=== PATIENT | female | born 1980 | race Two or more races ===

== ENCOUNTER 2020-10-18 05:16 | Inpatient (IN) | payer OTHER ==
[~2020-10-18] VITALS: Ht 152.4 cm; Wt 63.0 kg
[2020-10-18] VITALS (14 sets, daily range): BP systolic 95–157; BP diastolic 44–78
[~2020-10-18 05:16] MED LIST: TYLENOL EXTRA500 MG ORAL
[2020-10-18] MEDS ORDERED: Gelfoam Size TOPIC ONE (06:29)
[2020-10-18] MEDS ORDERED: Thrombin 5000 units TOPIC ONE (06:29)
[2020-10-18] MEDS ORDERED: Bacitracin 50000 Units Vial ONE (06:29)
[2020-10-18] MEDS ORDERED: Succinylcholine 20mg/ml 10ml vial ONE (06:30)
[2020-10-18] MEDS ORDERED: Rocuronium Bromide 50mg/5ml Inj IV ONE (06:30)
[2020-10-18] MEDS ORDERED: Phenylephrine 10mg/ml Vial ONE (06:42)
[2020-10-18] MEDS ORDERED: Lidocaine 1% MPF 10mg/ml 5ml ONE (06:42)
[2020-10-18] MEDS ORDERED: Midazolam 2mg/2ml Inj ONE (06:43)
[2020-10-18] MEDS ORDERED: fentaNYL 100 mcg/2 mL IV ONE (06:43)
--- NOTE | 2020-10-18 06:59 | Anethesia Preoperative Eval ---
Anesthesia Pre-op PMH/ROS General Date of Evaluation: Oct 18, 2020 Time of Evaluation: 06:56 Anesthesiologist: Guillaume ASA Score: ASA 2 Mallampati Score Class I : Soft palate, uvula, fauces, pillars visible Class II: Soft palate, uvula, fauces visible Class III: Soft palate, base of uvula visible Class IV: Only hard plate visible Mallampati Classification: Class II Surgeon: Faye Diagnosis: Cervical radiculopathy Surgical Procedure: ACDF Anesthesia History: none Family History: no anesthesia problems Allergies: Coded Allergies: No Known Allergies (Unverified , 10/14/20) Medications: see eMAR Patient NPO?: Yes Past Medical History Cardiovascular: Denies: HTN, CAD, CO, valve dz, arrhythmia, other Pulmonary: Denies: asthma, COPD, HSERIE, other Gastrointestinal/Genitourinary: Reports: GERD; Denies: CRI, ESRD, other Neurologic/Psychiatric: Reports: depression/anxiety, other - chronic pain; Denies: dementia, CVA, TIA Endocrine: Denies: DM, hypothyroidism, steroids, other HEENT: Denies: cataract (L), cataract (R), glaucoma, SQUAXIN (L), SQUAXIN (R), other Hematology/Immune: Denies: anemia, DVT, bleeding disorder, other Musculoskeletal/Integumentary: Denies: OA, RA, DJD, DDD, edema, other Other: other - overweight PMH Narrative: as above PSxH Narrative: Septoplasty Anesthesia Pre-op Phys. Exam Physician Exam Last Vital Signs Date Time Temp Pulse Resp B/P (MAP) Pulse Ox O2 Delivery O2 Flow Rate FiO2 10/18/20 05:56 Room Air 10/18/20 05:43 96.3 62 18 157/78 (104) 100 Constitutional: NAD Neurologic: CN 2-12 intact Cardiovascular: RRR, no M/R/G Respiratory: CTA Gastrointestinal: S/NT/ND Airway Exam Mallampati Score: Class II MO: full Neck: stiff ROM: limited Teeth: intact Dentures: no upper, no lower Anesthesia Pre-op A/P Labs see chart Urine Test Test 10/18/20 05:25 Urine HCG, Qualitative Negative (NEGATIVE) Studies Pre-op Studies: EKG - SR Risk Assessment & Plan Assessment: ASA 2 Plan: GA with ETT neuromonitoring Status Change Before Surgery: No Pre-Antibiotics Drug: Ancef 1gr. Given Within 1 Hr of Incision: Yes Time Given: 07:40 Michoacano Galaviz MD Oct 18, 2020 06:59
[2020-10-18] MEDS ORDERED: ceFAZolin sod 2 GM in NS 55 ML IVPB ONE (07:00)
--- NOTE | 2020-10-18 07:24 | Pre-Procedure Note/Attestation ---
Pre-Procedure Note/Attestation Complete Prior to Procedure Planned Procedure: not applicable Procedure Narrative: Cervical 45 and Cervical 67 artificial disc replacement Indications for Procedure Pre-Operative Diagnosis: Herniation of C45 and C67 Attestation I attest that I discussed the nature of the procedure; its benefits; risks and complications; and alternatives (and the risks and benefits of such alternatives), prior to the procedure, with the patient (or the patient's legal lead generation representative). I attest that, if there was a reasonable possibility of needing a blood transfusion, the patient (or the patient's legal lead generation representative) was given the [facility] standardized written summary, pursuant to the Rodríguez Katherine Blood Safety Act ([place] Health and Safety Code # 1645, as amended). I attest that I re-evaluated the patient just prior to the surgery and that t here has been no change in the patient's H&P, except as documented below: Cameron Mckinney MD Oct 18, 2020 07:24
--- NOTE | 2020-10-18 07:25 | Brief Operative Note ---
Immediate Post Operative Note Operative Note Chief Complaint: Neck pain and radiculopathy Pre-op Diagnosis: Herniation of C45 and C67 Procedure: Cervical 45 and 67 artificial disc replacement Post-op Diagnosis: same as pre-op Findings: consistent w/pre-op dx studies Surgeon: Faye Service Order Expediter: Angelito Anesthesiologist: YENIFER Anesthesia: general Specimen: none Complications: none Condition: stable Fluids: IVF Estimated Blood Loss: minimal Implant(s) used?: Yes - Prodisc C size 5 Cameron Mckinney MD Oct 18, 2020 07:25
[2020-10-18] MEDS ORDERED: Naloxone 0.4mg/ml Inj IVP PRN (07:30)
[2020-10-18] MEDS ORDERED: Chloraseptic Spray 20mL Bottle ORAL PRN (07:30)
[2020-10-18] MEDS ORDERED: HYDROcodone/Acetamin 5/325 tab ORAL PRN (07:30)
[2020-10-18] MEDS ORDERED: HYDROmorphone 1mg/ml Carpuject IVP PRN (07:30)
[2020-10-18] MEDS ORDERED: Morphine Sulfate 4mg/ml Inj (IV USE ONLY) IV PRN ×2 (07:30)
[2020-10-18] MEDS ORDERED: Morphine Sulfate 2mg/ml Inj(IV/IM USE ONLY) IV PRN (07:30)
[2020-10-18] MEDS ORDERED: HYDROcodone/Acetamin 7.5/325 tab ORAL PRN ×2 (07:30)
[2020-10-18] MEDS ORDERED: Metoclopramide 10mg/2ml Inj IVP PRN ×2 (07:30→08:30)
[2020-10-18] MEDS ORDERED: Milk of Magnesia 30ml Ud ORAL PRN (07:30)
[2020-10-18] MEDS ORDERED: Morphine Sulfate 10mg/ml Inj ONE (08:13)
[2020-10-18] MEDS ORDERED: Sodium Chloride 10ml vial INJ ONE (08:14)
[2020-10-18] MEDS ORDERED: NS Irrig 1000ml IRRIG ONE (08:20)
[2020-10-18] MEDS ORDERED: Glycopyrrolate 0.2mg/ml 1ml Vial ONE (08:21)
[2020-10-18] MEDS ORDERED: Ketorolac 30mg Inj ONE (08:24)
[2020-10-18] MEDS ORDERED: Acetaminophen (Non formulary) 100 ML IV ONE (08:30)
[2020-10-18] MEDS ORDERED: LR 1000ml 1,000 ML IVLG SCH (08:30)
[2020-10-18] MEDS ORDERED: Ketorolac 30mg Inj IV PRN (08:30)
[2020-10-18] MEDS ORDERED: DiphenhydrAMINE 50mg/ml Inj IVP PRN (08:30)
[2020-10-18] MEDS ORDERED: Meperidine 25mg/1ml Inj (FOR RIGORS ONLY) IV PRN (08:30)
[2020-10-18] MEDS ORDERED: Hydromorphone 0.5mg/0.5ml inj IVP PRN (08:30)
[2020-10-18] MEDS ORDERED: Midazolam 2mg/2ml Inj IVP PRN (08:30)
--- NOTE | 2020-10-18 10:10 | Immediate Post-Op Evaluation ---
Immediate Post-Op Evalulation Immediate Post-Op Evalulation Procedure: ACDF c4-C5 C6-C7 Date of Evaluation: Oct 18, 2020 Time of Evaluation: 10:09 IV Fluids: 700 Blood Products: none Estimated Blood Loss: 150 Urinary Output: 200 Blood Pressure Systolic: 96 Blood Pressure Diastolic: 50 Pulse Rate: 78 Respiratory Rate: 20 O2 Sat by Pulse Oximetry: 99 Temperature (Fahrenheit): 97.8 Pain Score (1-10): 1 Nausea: No Vomiting: No Complications none Patient Status: reacts, patent, extubated, none Hydration Status: adequate Michoacano Galaviz MD Oct 18, 2020 10:10
--- NOTE | 2020-10-18 11:10 | NUR ---
NURSE NOTES: Received pt from PACU and report from ROZ Boyle. Pt awake but drowsy, A&Ox4. Breathing even and unlabored on NC 2L. All belongs were accounted for. Skin intact. Surgical dressing on anterior neck clean and dry. IV on Lt hand intact. Vitals stable. Oriented pt to room. Bed in low position, locked. Side rails up x2. Call light within reach. Will continue to monitor.
[2020-10-18] MEDS: NS w/KCl 20mEq 1000ml 1,000 ML IV SCH (14:00)
--- NOTE | 2020-10-18 14:29 | Operative Note - Dictated ---
DATE OF OPERATION: 10/18/2020 SURGEON: Cameron Mckinney MD, Orthopaedic Spine Surgeon. PREOPERATIVE DIAGNOSES: 1. Intractable neck pain. 2. Radiculopathy. 3. Cervical herniation, C4-C5 and C6-C7. 4. Neural foraminal stenosis, C4-C5 and C6-C7. 5. Stenosis. POSTOPERATIVE DIAGNOSES: 1. Intractable neck pain. 2. Radiculopathy. 3. Cervical herniation, C4-C5 and C6-C7. 4. Neural foraminal stenosis, C4-C5 and C6-C7. 5. Stenosis. PROCEDURE PERFORMED: 1. Anterior cervical discectomy and artificial disc replacement of C4-C5 using a Synthes ProDisc C size 5 height; anterior cervical discectomy and artificial disc replacement of C6-C7 using a Synthes ProDisc C size 5 height. 2. Use of intraoperative microscope. 3. Motor-evoked potential monitoring. 4. Somatosensory-evoked potential monitoring. 5. Supervision and interpretation of fluoroscopy. COMPLICATIONS: None. ANESTHESIA: General. ESTIMATED BLOOD LOSS: Less than 100 mL. INDICATIONS FOR SURGERY: This patient is a 39-year-old female who has a history of diagnoses as listed above. As a result of this, the patient sustained intractable neck pain, radiculopathy, cervical herniation of C4-C5 and C6-C7, neural foraminal stenosis of C4-C5 and C6-C7, and stenosis. We tried a course of conservative management, but despite this course, there was still a significant component of persistent, recalcitrant neck pain and arm pain. The MRI demonstrated significant neural foraminal compromise secondary to disc herniations at C4-C5 and C6-C7. We had a long discussion with Sandi regarding the risks and benefits of surgery. Our discussion included but was not limited to nonoperative management, chiropractic management, another epidural steroid injection as well as definitive management in the form of surgery. We recommended an anterior cervical discectomy and artificial disc replacement of C4-C5 and C6-C7 as final definitive management. We reviewed the risks and benefits of surgery with Sandi. Our discussion included a comprehensive review of the clinical issues and the nature of the clinical decision. We reviewed the alternatives, including doing nothing. Sandi elected to proceed accordingly with anterior cervical discectomy and artificial disc replacement of C4-C5 and C6-C7. We had a long discussion regarding the risks, alternatives and benefits of surgery. Our description of the risks included a discussion in person as well as a signed consent, which detailed all pertinent risks from the procedure itself. Briefly, our discussion included but was not limited to infection, bleeding, pseudarthrosis, spinal cord injury, neurovascular injury, dural tear, CSF leak, neuropathy, paralysis, permanent weakness/drop foot/drop arm, paresthesias, blindness, palsy and weakness. The patient understood there may be a need for a revision surgery or additional procedures. Approach-related complications including dysphonia, dysphagia, blindness, permanent vocal cord and neural injury, hematoma, swallowing and breathing difficulty. Medical complications were reviewed including liver, kidney, shock, cardiopulmonary failure, anesthesia complications including , swelling, damage to the musculature, larynx/voice injury or loss, esophagus/throat, trachea, blood vessels and muscles/muscular sprain and lungs/pneumothorax during this surgical procedure; injury to deeper structures may be temporary or permanent. After this review of risks, Sandi understood these and elected to proceed. A written and verbal consent was given. We discussed the pros and cons of all the alternatives. We discussed the uncertainties associated with the decision. Afterwards, I assessed Sandi's understanding and explored their preferences. All questions were answered and no guarantees were given. Medical clearance was obtained prior to surgery. INTRAOPERATIVE FINDINGS: C4-C5; at C4-C5, the disc itself was found to be spongy. There were no anterior spurs noted. The disc was soft and well hydrated. I did note upon removal of the vast majority of the disc, we approached the posterior longitudinal ligament. There was an apparent tear along the right aspect of the PLL. This was probed with Microsect 2-B curette and gave rise to a large nuclear fragment sitting on the thecal sac posteriorly and the neural foramina of C4-C5. This was resected with a combination of Kerrison 1 and Kerrison 2 rongeurs until complete neural foraminotomy was performed and decompression of the thecal sac and spinal cord was performed posteriorly. C6-C7; at C6-C7, the disc also was soft and spongy. There were no anterior spurs noted. The disc was not dehydrated or calcified. After resection of the disc, I noted at the posterior longitudinal ligament, there was a tear both centrally noted as well as on the right side. This was probed with a Microsect 1-B, which gave rise to a disc herniation extruding from the right aspect of the posterior longitudinal ligament encroaching the right neural foramina as well as posteriorly on the thecal sac and spinal cord. This was resected with a combination of Kerrison 1 and 2 mm rongeurs without any significant difficulty. The thecal sac and spinal cord were decompressed in standard fashion. DESCRIPTION OF PROCEDURE: Under the benefit of general endotracheal anesthesia and with the assistance of the entire operative team, the patient was moved from the gurney onto the operative table in the supine position. The head was secured and carefully positioned appropriately. Bilateral arms were secured with Gel Pads and foam and all bony prominences were padded. For the bilateral lower extremities, SCD and CARLOS ALBERTO hose were placed for DVT prophylaxis. A surgical timeout was called, which corroborated our planned procedure of anterior cervical discectomy and artificial disc replacement of C4-C5 and C6-C7. Preoperative antibiotics were administered within 30 minutes of the incision for antibiotic prophylaxis. Using lateral fluoroscopic radiography, the operative levels were delineated. Next, the wound was prepped and draped with chlorhexidine and sterile drapes. An incision was based on lateral fluoroscopy and we centered our incision at the C4-C5 and C6-C7 interspace and next, using a standard Carvalho-Berg anterior-based approach, the incision was taken down through the skin and subcutaneous tissues until the vertebral bodies and their corresponding disc spaces were visualized. A needle was placed into the interspace to confirm placement of the operative interspace and we performed the remainder of procedure under microscopic visualization. Next, using a bipolar and Bovie cautery to ensure meticulous hemostasis, the longus colli was mobilized bilaterally and retractors were placed deep to the longus colli bilaterally to address retraction. Next, we turned our attention to the radical anterior diskectomy. This was initially performed at C4-C5 first by using a 15 blade scalpel followed by narrow pituitaries and a Microsect 5-B curette was used to denude the endplate of all cartilaginous tissue. Next, using a [employer] AM8 drill bit, the partial vertebrectomy was performed in a svcy-he-jkvc and tssmc-pz-nowkg fashion, and ultimately the posterior uncinate joints bilaterally and posterior osteophytic lips and margins causing central and lateral impingement were carefully denuded until visualization of the posterior longitudinal ligament was possible. An endplate preparation was performed in the exact same fashion using an intervertebral innersole maker, sequential distraction was obtained throughout the disk space. We saw a tear/rent in the PLL and this was carefully mobilized and dissected using a Microsect 1-B curette until we visualized a broad-based disk herniation with compression of the spinal cord as well neural foramina, which was right more than left sided. This neuroforaminal compression was carefully resected using a Kerrison-1 and Kerrison-2 rongeurs until complete decompression of the spinal cord was visualized and complete decompression of the neural foramina and nerve root therein as well as the axilla and lateral margin of the nerve root was visualized and subsequently completely decompressed. This was then performed at C6-C7 first by using a 15 blade scalpel followed by narrow pituitaries and a Microsect 5-B curette was used to denude the endplate of all cartilaginous tissue. Next, using a [employer] AM8 drill bit, the partial vertebrectomy was performed in a eyyg-um-dgyt and xqulj-yo-gdmyb fashion, and ultimately the posterior uncinate joints bilaterally and posterior osteophytic lips and margins causing central and lateral impingement were carefully denuded until visualization of the posterior longitudinal ligament was possible. An endplate preparation was performed in the exact same fashion using an intervertebral innersole maker, sequential distraction was obtained throughout the disk space. We saw a tear/rent in the PLL and this was carefully mobilized and dissected using a Microsect 1-B curette until we visualized a broad-based disk herniation with compression of the spinal cord as well neural foramina, which was right more than left sided. This neuroforaminal compression was carefully resected using a Kerrison-1 and Kerrison-2 rongeurs until complete decompression of the spinal cord was visualized and complete decompression of the neural foramina and nerve root therein as well as the axilla and lateral margin of the nerve root was visualized and subsequently completely decompressed. The family was notified at one-hour intervals throughout the procedure to provide for consistent updates. We next turned our attention towards trialing our implant within the disk space. At C4-C5, we initially tried size 5 and the ProDisc Cervical spacer fit well in regard to depth and width. This implant was opened and prepared. Next, under direct visualization, I confirmed excellent fit in respect to the anterior and posterior vertebral bodies, the uncinate joints and in regard to toggle. Once satisfied with this placement on serial AP and lateral fluoroscopy, I turned my attention towards cutting our jennifer. These were cut in the bones using a reciprocating drill and afterwards all free fragments of bone were irrigated. Next, FloSeal was placed into the interspace and the implant was inserted using fluoroscopic guidance. Next, the Synthes ProDisc C size 5 ADR was then carefully advanced and secured into the intervertebral space under direct visualization and with supervision of AP and lateral fluoroscopic views. This was then performed at C6-C7. We initially tried size 5 and the ProDisc Cervical spacer fit well in regard to depth and width. This implant was opened and prepared. Next, under direct visualization, I confirmed excellent fit in respect to the anterior and posterior vertebral bodies, the uncinate joints and in regard to toggle. Once satisfied with this placement on serial AP and lateral fluoroscopy, I turned my attention towards cutting our jennifer. These were cut in the bones using a reciprocating drill and afterwards all free fragments of bone were irrigated. Next, FloSeal was placed into the interspace and the implant was inserted using fluoroscopic guidance. Next, the Synthes ProDisc C size 5 ADR was then carefully advanced and secured into the intervertebral space under direct visualization and with supervision of AP and lateral fluoroscopic views. After a finger sweep, we confirmed removal of all sponges. The retractor was removed and we next turned our attention to meticulous hemostasis with FloSeal and bipolar cautery. After the sponge and needle count was again found to be correct with our second count, we next turned our attention to closure. The wound was again copiously irrigated with antibiotic-impregnated saline. Closure consisted of 4-0 clear nylon for the platysma, and 5-0 clear nylon for the superficial skin. Final skin closure and dressings consisted of Dermabond. Prior to final closure, a final radiograph was obtained which demonstrated the hardware is intact with excellent position throughout. The patient tolerated the procedure well. The patient was carefully extubated after the conclusion of surgery. We discussed the findings of the surgery with the family upon completion of the case. At this point, the patient was transferred to the spine floor for further observation. Cameron Mckinney M.D. DR: ALIX JOB#: [id number] CC:
--- NOTE | 2020-10-18 14:37 | Diagnostic Imaging Report ---
INDICATION: Pain, intraoperative TECHNIQUE: Intraoperative imaging Fluoroscopy time: 60 seconds Total dose: 0.02754 mGym2 Total number of images: 5 COMPARISON: None FINDINGS: Intraoperative images demonstrate surgical tools projected at the C4-5 and C6-7 disc levels. Subsequent images document placement of disc prostheses at C4-5 and C6-7 IMPRESSION: Intraoperative imaging, as described
[2020-10-18] MEDS: ceFAZolin sod 1 GM in D5W 55 ML IV SCH (15:45)
[2020-10-18] MEDS: Docusate 100mg cap ORAL SCH (18:08)
--- NOTE | 2020-10-18 19:47 | NUR ---
NURSE HAND-OFF: Important Events on Shift:[Post-op, pain management, ABX given, voided after ramirez out.] Patient Status: [] Diet: [Cervical diet] Pending Orders: [] Pending Results/Labs:[] Pending MD notification:[] Latest Vital Signs: Temperature 97.5 , Pulse 74 , B/P 115 /68 , Respiratory Rate 17 , O2 SAT 98 , Nasal Cannula, O2 Flow Rate 3 . Vital Sign Comment: [stable] Latest Ulloa Fall Score: 35 Fall Risk: Medium Risk Safety Measures: Call light , Bed Alarm , Side Rails Side Rails x1, Bed position Low and Locked. Fall Precautions: Report given to [ROZ Michael].
--- NOTE | 2020-10-18 19:48 | NUR ---
NURSE NOTES: Received patient in no apparent distress. A&OX4. IV site patent and intact. Surgical dressing noted on the anterior neck, dry and intact. Bed in lowest position. Call light within reach. Will continue to monitor.
--- NOTE | 2020-10-18 22:03 | NUR ---
NURSE NOTES: Patient requested removed SCD.
[2020-10-19] VITALS: BP 116/68
[2020-10-19] MEDS: ceFAZolin sod 1 GM in D5W 55 ML IV SCH ×2 (00:01→09:42)
[2020-10-19 04:00] VITALS: BP 119/71
--- NOTE | 2020-10-19 07:40 | NUR ---
NURSE HAND-OFF: Important Events on Shift: Patient Status: Diet: post op cervical diet Pending Orders: Pending Results/Labs: Pending MD notification: Latest Vital Signs: Temperature 98.1 , Pulse 90 , B/P 119 /71 , Respiratory Rate 17 , O2 SAT 97 , Nasal Cannula, O2 Flow Rate 3 . Vital Sign Comment: Latest Ulloa Fall Score: 35 Fall Risk: Medium Risk Safety Measures: Call light Within Reach, Bed Alarm Zone 1, Side Rails Side Rails x2, Bed position Low and Locked. Fall Precautions: Yellow Socks Yellow Gown Door Sign Patient Fall Education Report given to Merlyn COURTNEY.
--- NOTE | 2020-10-19 07:41 | NUR ---
NURSE NOTES: Pt received from Fernanda COURTNEY. Bed low and locked, pt in bed eating breakfast. no complaint of pain. neck dressing dry and in tact.
--- NOTE | 2020-10-19 07:51 | 48 Hour Post Anesthesia Eval ---
Post Anesthesia Evaluation Procedure: ACDF c4-C5 C6-C7 Date of Evaluation: Oct 19, 2020 Time of Evaluation: 07:50 Blood Pressure Systolic: 118 0: 76 Pulse Rate: 74 Respiratory Rate: 20 Temperature (Fahrenheit): 97.8 O2 Sat by Pulse Oximetry: 98 Airway: patent Nausea: No Vomiting: No Pain Intensity: 3 Hydration Status: adequate Cardiopulmonary Status: stable Mental Status/LOC: patient returned to baseline Follow-up Care/Observations: n/a Post-Anesthesia Complications: none Follow-up care needed: ready to discharge Michoacano Galaviz MD Oct 19, 2020 07:51
[2020-10-19 08:00] VITALS: BP 123/73
--- NOTE | 2020-10-19 09:10 | NUR ---
PT EVALUATION NOTE Patient seen for initial evaluation and treatment initiated. Patient presents with pain and impaired functional mobility s/p cervical spine surgery. Patient instructed in cervical spine precautions and in proper log roll technique for in/OOB. Patient required supervision/SBA for bed mobility and SBA for transfers without AD. Patient able to ambulate 100 ft with SBA/CGA, no AD. Patient will benefit from skilled inpatient PT intervention to increase strength and postural stability for improved level of functional mobility, safety and activity tolerance. Anticipate discharge home once medically cleared by MD. No DME needs identified at this time. Addendum: 10/19/20 at 1252 by TOR HERNANDEZ PT Amended: Links added.
[2020-10-19] MEDS: Docusate 100mg cap ORAL SCH (09:42)
[2020-10-19] MEDS: NS w/KCl 20mEq 1000ml 1,000 ML IV SCH ×2 (10:00)
[2020-10-19] MEDS ORDERED: NORCO 10/3251 EA ORAL (11:32)
[2020-10-19 11:57] VITALS: BP 117/68
--- NOTE | 2020-10-19 13:15 | NUR ---
NURSE NOTES: Iv removed, paperwork signed, wrist band cut, education re keeping surgical site clean given. pt picked up by friend, walked down together. Belongings and rx for java signed for
--- NOTE | 2020-10-20 12:24 | Discharge Summary ---
Discharge Summary Discharge Summary _ Date of admission: 10/18/2020 Date of discharge: 10/19/[address] Mckinney History of Present Illness and Brief Hospital Course Ms. Linares is a 39-year-old female who presented to [facility] for a scheduled surgery. She had intractable back pain, radiculopathy secondary to c ervical herniation and neuroforaminal stenosis at C4-C5 and C6-C7. Patient tried a course of conservative management but there was a significant component of persistent, recalcitrant neck pain and arm pain. Patient elected to proceed accordingly with anterior cervical discectomy and artificial disc displacement of C4-C5 and C6-C7. Patient was taken to the OR and tolerated the procedure well. Patient was transferred to the spine floor for further observation after surgery. The details of the operation can be found in the operative note by Dr. Mckinney. Patient was also evaluated by a physical therapist. Patient was able to ambulate 100 feet without assistive device. Patient was medically stable for discharge and was discharged on 10/19/2020. Consultants: None Discharge Condition Stable Discharge Activity As tolerated Discharge Diet Regular Final diagnoses Intractable neck pain. Radiculopathy. Cervical herniation, C4-C5 and C6-C7. Neural foraminal stenosis, C4-C5 and C6-C7. Stenosis. s/p anterior cervical discectomy and artificial disc replacement of C4-C5 and C6-C7 I have been assigned to dictate discharge summary for this account. I was not involved in the patient's management Hay Ko Oct 20, 2020 12:24
== END 2020-10-19 13:05 | disposition home or self-care (01) | DRG 518 ==
LOC: SDSOVERFLO 05:16 → 4E 11:10
PROC: 0RR30JZ Replacement of Cervical Vertebral Disc with Synthetic Substitute, Open Approach (ICD-10-PCS; principal; 2020-10-18 07:00)
DX: M50.121 Cervical disc disorder at C4-C5 level with radiculopathy (principal); M48.02 Spinal stenosis, cervical region; Z87.891 Personal history of nicotine dependence; V49.9XXS Car occupant (driver) (passenger) injured in unspecified traffic accident, sequela; R73.03 Prediabetes; E78.00 Pure hypercholesterolemia, unspecified
CPT/HCPCS: 36415; 72040; 76000; 81025; 86850; 86900; 86901; 87081; 94003; 94150; J2250; J2370; J2405